=== PATIENT | female | born 1995 | race Caucasian/White ===

== ENCOUNTER 2024-12-18 15:12 | Outpatient (CLI) | payer OTHER ==
[~2024-12-18 15:12] MED LIST: PHEN-716 PO
== END 2024-12-18 23:59 | disposition home or self-care (01) ==
LOC: MRI 15:12
PROVIDERS: ATTEND Nurse Practitioner
DX: S82.141D Displaced bicondylar fracture of right tibia, subsequent encounter for closed fracture with routine healing (principal); S83.511A Sprain of anterior cruciate ligament of right knee, initial encounter; S83.411A Sprain of medial collateral ligament of right knee, initial encounter; M25.461 Effusion, right knee; S32.10XA Unspecified fracture of sacrum, initial encounter for closed fracture; S22.41XD Multiple fractures of ribs, right side, subsequent encounter for fracture with routine healing; S06.9X1D Unspecified intracranial injury with loss of consciousness of 30 minutes or less, subsequent encounter; X58.XXXD Exposure to other specified factors, subsequent encounter; X58.XXXA Exposure to other specified factors, initial encounter; Y93.89 Activity, other specified; Y92.89 Other specified places as the place of occurrence of the external cause; Y99.8 Other external cause status
CPT/HCPCS: 73721